=== PATIENT | male | born 1970 | race Caucasian/White ===

== ENCOUNTER 2018-10-17 11:13 | Emergency (ER) | payer SELFPAY ==
--- NOTE | 2018-10-17 12:16 | RAD ---
2 VIEW CHEST SERIES: Date: 10/17/18 INDICATION: Fall with right-sided chest pain. FINDINGS: The cardiac silhouette and mediastinal structures are appropriate in volume. There is no lobar consol idation, effusion, or discrete pneumothorax. Scattered osseous degenerative changes are present. With in the posterior left lower chest, there is slight buckling with subtle fracture lucency involving re gion of the left 9th and 10th ribs, difficult to reliably discern. IMPRESSION: Subtle rib deformities of the inferior and left lower chest. The report does state a clinical indicat ion of right-sided chest pain. Please correlate clinically in this regard. As necessary, dedicated ri b series may be obtained, or if there is more urgent concern for thoracic pathology, CT of chest may be obtained. VANESSA Andrea
--- NOTE | 2018-10-17 14:58 | RAD ---
LEFT RIBS THREE VIEWS: Indications: Fall with injury to left ribs. FINDINGS: There are mildly displaced fractures involving the posterolateral left 9th and 10th ribs. Left lung a ppears clear. No pneumothorax or effusion identified. No other rib fracture or lesion seen. IMPRESSION: Fractures posterolateral left 9th and 10th ribs. POS: C
== END 2018-10-17 14:15 | disposition home or self-care (01) ==
LOC: ERS 11:13
DX: S22.42XA Multiple fractures of ribs, left side, initial encounter for closed fracture (principal); I10 Essential (primary) hypertension; F17.210 Nicotine dependence, cigarettes, uncomplicated; W22.03XA Walked into furniture, initial encounter
CPT/HCPCS: 71046

== ENCOUNTER 2020-06-13 15:12 | Outpatient (CLI) | payer OTHER ==
--- NOTE | 2020-06-13 15:33 | RAD ---
Exam: XR Hip Lt 2-3 View HISTORY: Disability exam COMPARISON: None FINDINGS: Degenerative changes are partially imaged involving the lumbar spine. No acute fracture, dislocation, or other acute osseous abnormality is identified. Multiple calcific lesions overlie the pelvis likely attributable to phleboliths. IMPRESSION: No acute osseous abnormality is identified.
--- NOTE | 2020-06-13 15:43 | RAD ---
LUMBAR SPINE TWO VIEWS: 06/13/20 HISTORY: Disability exam. FINDINGS: There is a transitional vertebra at the lumbosacral level with what appears to be lumbarized S1. Ther e is some dextroscoliosis at this level. Very severe disc osteophytosis and disc space narrowing thro ughout the lumbar spine. There is some vertical height loss of the lumbarized S1. IMPRESSION: 1. Transitional vertebrae at the lumbosacral level with some associated dextroscoliosis. 2. Very severe disc osteophytosis and facet arthrosis. 3. Mild vertical height loss of the lumbarized S1 but this does not appear acute. POS: AH
== END 2020-06-13 15:13 | disposition home or self-care (01) ==
LOC: BICRAD 15:12
PROVIDERS: ATTEND Internal Medicine
DX: Z02.71 Encounter for disability determination (principal); Q76.49 Other congenital malformations of spine, not associated with scoliosis; M46.96 Unspecified inflammatory spondylopathy, lumbar region; M25.78 Osteophyte, vertebrae
CPT/HCPCS: 72100